=== PATIENT | female | born 1990 | race Caucasian/White ===

== ENCOUNTER 2019-08-16 10:54 | Emergency (ER) | payer OTHER ==
[~2019-08-16] VITALS: Ht 160 cm; Wt 72.6 kg
[2019-08-16] MEDS ORDERED: AZITHROMYCIN 500 MG TABLET PO ONE (12:00)
[2019-08-16] MEDS ORDERED: CEFTRIAXONE 250 MG IM ONE (12:00)
[2019-08-16] MEDS ORDERED: AZITHROMYCIN 250 MG TABLET ONE (12:12)
[2019-08-16] MEDS ORDERED: CEFTRIAXONE 250 MG ONE (12:12)
--- NOTE | 2019-08-16 12:18 | NUR ---
pt in us at this time.
--- NOTE | 2019-08-16 12:30 | NUR ---
pt amb to br with steady gait. urine cup given.
[2019-08-16 12:38] VITALS: BP 106/67
--- NOTE | 2019-08-16 12:40 | NUR ---
PT C/O: NEED CHECK FOR STD AND INFECTION WAS SEEN AT , SENT BY FOR PELVIC PAIN. LMP: LAST WEEK C/O VAGINAL DISCHARGE AND FOUL ODOR, DENIES VAGINAL BLEEDING. PT'S AOX4. RESPS EVEN AND UNLABORED. BP/SPO2 MONITORS IN PLACE. CALL LIGHT WITHIN REACH.
[2019-08-16 12:41] LABS: BASOPHILS # (AUTO) 0.05 x10^3/uL (0-0.1); BASOPHILS % (AUTO) 0 % (0-1); EOSINOPHILS # (AUTO) 0.13 x10^3/uL (0-0.4); EOSINOPHILS % (AUTO) 1 % (1-7); LYMPHOCYTES # (AUTO) 2.41 x10^3/uL (1-3.4); LYMPHOCYTES % (AUTO) 23 % (22-44); MD NO; MEAN CORPUSCULAR HEMOGLOBIN 30.1 pg (27.0-34.8); MEAN CORPUSCULAR HGB CONC 33.5 g/dL (32.4-35.8); MEAN CORPUSCULAR VOLUME 89.8 fL (80-100); MONOCYTES # (AUTO) 0.67 x10^3/uL (0.2-0.8); MONOCYTES % (AUTO) 6 % (2-9); NEUTROPHILS # (AUTO) 7.38 x10^3/uL (1.8-6.8); NEUTROPHILS % (AUTO) 69 % (42-75); PLATELET COUNT 426 x10^3/uL (130-400); RED CELL DISTRIBUTION WIDTH 13.8 % (9.6-15.2)
--- NOTE | 2019-08-16 12:42 | NUR ---
PT MEDICATED PER EMAR. PT TOLERATED WELL.
[2019-08-16 12:48] LABS: ALBUMIN 3.9 g/dL (3.4-5.0); ANION GAP 7 mmol/L (5-15); CALCIUM 9.3 mg/dL (8.5-10.1); CHLORIDE 106 mmol/L (98-107); CREATININE 0.83 mg/dL (0.55-1.02)
[2019-08-16 12:52] LABS: CULTURE INDICATED? YES; MICROSCOPIC INDICATED
--- NOTE | 2019-08-16 13:21 | NUR ---
TASK RN: DC EDUCATION PROVIDED, PT DEMONSTRATES UNDERSTANDING. PT AMBUALTED STEADILY TO DC WITH RN AND FRIEND.
== END 2019-08-16 13:23 | disposition home or self-care (01) ==
LOC: ED 13:08
DX: N72 Inflammatory disease of cervix uteri (principal); F17.200 Nicotine dependence, unspecified, uncomplicated
CPT/HCPCS: 36415; 76830; 80048; 81001; 82040; 84703; 85025; 87086; 96372; 99284; J0696; 99283